=== PATIENT | male | born 1930 | race Caucasian/White ===

== ENCOUNTER 2017-08-10 11:45 | Inpatient (IN) | payer MEDICARE, OTHER ==
[2017-08-10] MEDS: SOD CHLORIDE 0.9% 1,000 ML IV (12:44)
[2017-08-10 12:57] LABS: ADD MAN DIFF? NO
[2017-08-10 13:06] LABS: WHITE BLOOD COUNT 10.9 10^3/ul (4.8-10.8)
[2017-08-10 13:06] LABS: BASOPHIL # 0.1 10^3/ul (0.0-0.1); BASOPHILS % 0.6 % (0.0-2.0); EOSINOPHILS # 0.3 10^3/ul (0.0-0.5); EOSINOPHILS % 2.6 % (0.0-7.0); HEMATOCRIT 35.5 % (42.0-52.0); HEMOGLOBIN 11.3 g/dl (14.0-18.0); LYMPHOCYTES # 0.9 10^3/ul (0.8-2.9); LYMPHOCYTES % 8.5 % (15.0-51.0); MEAN CORPUSCULAR HGB CONC 31.8 g/dl (32.0-37.0); MEAN CORPUSCULAR VOLUME 88.1 fl (82.0-101.0); MEAN PLATELET VOLUME 9.8 fl (7.4-10.4); MONOCYTE # 0.9 10^3/ul (0.3-0.9); MONOCYTES % 8.2 % (0.0-11.0); NEUTROPHIL # 8.5 10^3/ul (1.6-7.5); NEUTROPHILS % 77.8 % (39.0-77.0); PLATELET COUNT 183 10^3/UL (140-415); RED BLOOD COUNT 4.03 10^6/ul (4.70-6.10); RED CELL DISTRIBUTION WIDTH 15.4 % (11.5-14.5)
[2017-08-10 13:33] LABS: ALANINE AMINOTRANSFERASE 29 IU/L (13-69); ALBUMIN 3.9 g/dl (3.3-4.9); ALBUMIN/GLOBULIN RATIO 1.14; ALKALINE PHOSPHATASE 88 IU/L (42-121); ANION GAP 29 (8-16); ASPARTATE AMINO TRANSFERASE 13 IU/L (15-46); BLOOD UREA NITROGEN 75 mg/dl (7-20); CALCIUM 8.7 mg/dl (8.4-10.2); CARBON DIOXIDE 18 mmol/L (21-31); CHLORIDE 97 mmol/L (97-110); CREATININE 12.34 mg/dl (0.61-1.24); GLUCOSE 171 mg/dl (70-220); POTASSIUM 4.6 mmol/L (3.5-5.1); SODIUM 139 mmol/L (135-144); TOTAL PROTEIN 7.3 g/dl (6.1-8.1)
[2017-08-10 13:43] LABS: TROPONIN-I 0.064 ng/ml (0.00-0.12)
[2017-08-10 13:57] LABS: B-TYPE NATRIURETIC PEPTIDE 52100 PG/ML (0-450)
[2017-08-10] MEDS ORDERED: ACETAMINOPHEN 325 MG TAB PO (15:30)
[2017-08-10] MEDS ORDERED: ONDANSETRON 4 MG INJ IV (15:30)
[2017-08-10] MEDS ORDERED: GLUCAGON 1 MG INJ IM (17:30)
[2017-08-10] MEDS ORDERED: GLUCOSE GEL 15 GRAM TUBE PO ×2 (17:30)
[2017-08-10] MEDS ORDERED: DEXTROSE 50% 50 ML SYRINGE IV (17:30)
[2017-08-10] MEDS ORDERED: GLUCOSE GEL 15 GRAM TUBE BUCCAL (17:30)
[2017-08-10 20:05] LABS: CREATINE KINASE 47 IU/L (23-200)
[2017-08-10 20:18] LABS: CK INDEX 2.9; TROPONIN-I 0.071 ng/ml (0.00-0.12)
[2017-08-10 20:21] LABS: CK-MB 1.35 ng/ml (0.0-2.4)
[2017-08-10] MEDS: INSULIN ASPART [NOVOLOG] 3 ML PEN SC ×2 (21:00→21:30)
[2017-08-10] MEDS: GABAPENTIN 300 MG CAP PO (22:53)
[2017-08-10] MEDS: PRAMIPEXOLE 0.25 MG TAB PO (22:53)
[2017-08-10] MEDS: BENAZEPRIL 20 MG TAB PO (22:53)
[2017-08-10] MEDS: AMLODIPINE 5 MG TAB PO (22:54)
[2017-08-10] MEDS: METOPROLOL 25 MG TAB PO (22:56)
[2017-08-10] MEDS: INSULIN GLARGINE [LANtus] 3 ML PEN SC (23:04)
[2017-08-11] MEDS: ACCU-CHEK XX (02:00)
[2017-08-11 02:23] LABS: CREATINE KINASE 45 IU/L (23-200)
[2017-08-11 02:37] LABS: CK INDEX 3.2; TROPONIN-I 0.077 ng/ml (0.00-0.12)
[2017-08-11 02:50] LABS: CK-MB 1.44 ng/ml (0.0-2.4)
[2017-08-11 06:35] LABS: ADD MAN DIFF? NO
[2017-08-11 06:43] LABS: BASOPHIL # 0.1 10^3/ul (0.0-0.1); BASOPHILS % 0.7 % (0.0-2.0); EOSINOPHILS # 0.5 10^3/ul (0.0-0.5); EOSINOPHILS % 4.9 % (0.0-7.0); HEMATOCRIT 33.5 % (42.0-52.0); HEMOGLOBIN 10.8 g/dl (14.0-18.0); LYMPHOCYTES # 1.2 10^3/ul (0.8-2.9); LYMPHOCYTES % 12.8 % (15.0-51.0); MEAN CORPUSCULAR HEMOGLOBIN 28.1 pg (29.0-33.0); MEAN CORPUSCULAR HGB CONC 32.2 g/dl (32.0-37.0); MONOCYTES % 10.8 % (0.0-11.0); NEUTROPHIL # 6.4 10^3/ul (1.6-7.5); NEUTROPHILS % 68.2 % (39.0-77.0); PLATELET COUNT 185 10^3/UL (140-415); RED BLOOD COUNT 3.85 10^6/ul (4.70-6.10); RED CELL DISTRIBUTION WIDTH 15.5 % (11.5-14.5)
[2017-08-11 06:43] LABS: WHITE BLOOD COUNT 9.4 10^3/ul (4.8-10.8)
[2017-08-11 06:49] LABS: HEMOGLOBIN A1C 6.7 % (0-5.9)
[2017-08-11 07:08] LABS: ALBUMIN 3.6 g/dl (3.3-4.9); ANION GAP 23 (8-16); BLOOD UREA NITROGEN 81 mg/dl (7-20); CALCIUM 8.2 mg/dl (8.4-10.2); CARBON DIOXIDE 22 mmol/L (21-31); CHLORIDE 101 mmol/L (97-110); MAGNESIUM 2.2 mg/dl (1.7-2.5); PHOSPHORUS 8.4 mg/dl (2.5-4.9); POTASSIUM 4.6 mmol/L (3.5-5.1); SODIUM 141 mmol/L (135-144)
[2017-08-11 07:12] LABS: GLUCOSE 47 mg/dl (70-220)
[2017-08-11] MEDS: DEXTROSE 50% 50 ML SYRINGE IV (07:32)
[2017-08-11] MEDS: INSULIN ASPART [NOVOLOG] 3 ML PEN SC ×4 (07:34→21:00)
[2017-08-11 07:59] LABS: THYROID STIMULATING HORMONE 0.771 MIU/L (0.465-4.680)
[2017-08-11] MEDS: BENAZEPRIL 20 MG TAB PO ×2 (10:00→22:12)
[2017-08-11] MEDS: PRAMIPEXOLE 0.25 MG TAB PO ×2 (10:00→22:12)
[2017-08-11] MEDS: AMLODIPINE 5 MG TAB PO ×2 (10:00→22:10)
[2017-08-11] MEDS: ALLOPURINOL 300 MG TAB PO (10:00)
[2017-08-11] MEDS: METOPROLOL 25 MG TAB PO ×2 (10:00→22:11)
[2017-08-11 10:29] LABS: CHOL/HDL RATIO 4.2 RATIO; HDL CHOLESTEROL 36 mg/dl (31-75); LDL CHOLESTEROL,CALCULATED 88 mg/dl; TRIGLYCERIDES 142 mg/dl (0-149)
[2017-08-11 10:29] LABS: CHOLESTEROL 152 mg/dl (100-200)
[2017-08-11 11:00] LABS: THYROID STIMULATING HORMONE 0.758 MIU/L (0.465-4.680)
[2017-08-11] MEDS: IODIXANOL LOCM 100 ML BTL (12:57)
[2017-08-11] MEDS: SOD CHLORIDE 0.9% 100 ML (12:57)
[2017-08-11 19:28] LABS: HEPATITIS B SURFACE ANTIBODY NEGATIVE (NEGATIVE)
[2017-08-11 19:53] LABS: HEPATITIS B SURFACE ANTIGEN NEGATIVE (NEGATIVE)
[2017-08-11] MEDS: INSULIN GLARGINE [LANtus] 3 ML PEN SC (21:00)
[2017-08-11] MEDS: GABAPENTIN 300 MG CAP PO (22:09)
[2017-08-11] MEDS: ATORVASTATIN 40 MG TAB PO (22:12)
[2017-08-12] MEDS: EPOETIN 3000 UNITS/1 ML INJ (ESRD) SC (00:38)
[2017-08-12] MEDS: ACCU-CHEK XX (02:00)
[2017-08-12] MEDS: INSULIN ASPART [NOVOLOG] 3 ML PEN SC ×4 (07:56→21:00)
[2017-08-12] MEDS: ALLOPURINOL 300 MG TAB PO (08:21)
[2017-08-12] MEDS: ASPIRIN 81 MG TAB PO (08:21)
[2017-08-12] MEDS: PRAMIPEXOLE 0.25 MG TAB PO ×2 (08:21→21:16)
[2017-08-12] MEDS: METOPROLOL 25 MG TAB PO ×2 (08:21→21:00)
[2017-08-12] MEDS: BENAZEPRIL 20 MG TAB PO ×2 (08:21→21:17)
[2017-08-12] MEDS: AMLODIPINE 5 MG TAB PO ×2 (08:22→21:17)
[2017-08-12] MEDS: SEVELAMER 400 MG TAB PO ×3 (09:00→18:14)
[2017-08-12 09:11] LABS: ADD MAN DIFF? NO
[2017-08-12 09:41] LABS: BASOPHIL # 0.1 10^3/ul (0.0-0.1); BASOPHILS % 0.7 % (0.0-2.0); EOSINOPHILS # 0.4 10^3/ul (0.0-0.5); HEMATOCRIT 36.9 % (42.0-52.0); LYMPHOCYTES % 12.4 % (15.0-51.0); MEAN CORPUSCULAR HEMOGLOBIN 28.1 pg (29.0-33.0); MEAN CORPUSCULAR HGB CONC 32.5 g/dl (32.0-37.0); MEAN CORPUSCULAR VOLUME 86.4 fl (82.0-101.0); MONOCYTES % 12.1 % (0.0-11.0); NEUTROPHIL # 5.7 10^3/ul (1.6-7.5); NEUTROPHILS % 68.2 % (39.0-77.0); PLATELET COUNT 160 10^3/UL (140-415); RED BLOOD COUNT 4.27 10^6/ul (4.70-6.10); RED CELL DISTRIBUTION WIDTH 15.9 % (11.5-14.5)
[2017-08-12 09:41] LABS: WHITE BLOOD COUNT 8.4 10^3/ul (4.8-10.8)
[2017-08-12 09:44] LABS: ANION GAP 20 (8-16); BLOOD UREA NITROGEN 42 mg/dl (7-20); CALCIUM 8.7 mg/dl (8.4-10.2); CARBON DIOXIDE 27 mmol/L (21-31); CHLORIDE 96 mmol/L (97-110); CREATININE 8.64 mg/dl (0.61-1.24); GLUCOSE 129 mg/dl (70-220); MAGNESIUM 1.9 mg/dl (1.7-2.5); PHOSPHORUS 5.8 mg/dl (2.5-4.9); POTASSIUM 4.6 mmol/L (3.5-5.1); SODIUM 138 mmol/L (135-144)
[2017-08-12 09:51] LABS: ALBUMIN 3.5 g/dl (3.3-4.9); ANION GAP 20 (8-16); BLOOD UREA NITROGEN 42 mg/dl (7-20); CALCIUM 8.7 mg/dl (8.4-10.2); CARBON DIOXIDE 26 mmol/L (21-31); CHLORIDE 96 mmol/L (97-110); CREATININE 8.46 mg/dl (0.61-1.24); GLUCOSE 126 mg/dl (70-220); PHOSPHORUS 5.8 mg/dl (2.5-4.9); POTASSIUM 4.8 mmol/L (3.5-5.1); SODIUM 137 mmol/L (135-144)
[2017-08-12] MEDS: COLLAGENASE 30 GM TUBE TOP (16:30)
[2017-08-12] MEDS: LINAGLIPTIN 5 MG TABLET PO (18:14)
[2017-08-12] MEDS: GABAPENTIN 300 MG CAP PO (21:16)
[2017-08-12] MEDS: ATORVASTATIN 40 MG TAB PO (21:17)
[2017-08-13] MEDS: ACCU-CHEK XX (02:00)
[2017-08-13] MEDS: INSULIN ASPART [NOVOLOG] 3 ML PEN SC ×4 (08:38→21:00)
[2017-08-13] MEDS: SEVELAMER 400 MG TAB PO ×3 (08:40→17:05)
[2017-08-13] MEDS: AMLODIPINE 5 MG TAB PO ×2 (08:40→23:54)
[2017-08-13] MEDS: ALLOPURINOL 300 MG TAB PO (08:40)
[2017-08-13] MEDS: ASPIRIN 81 MG TAB PO (08:40)
[2017-08-13] MEDS: BENAZEPRIL 20 MG TAB PO ×2 (08:40→23:53)
[2017-08-13] MEDS: PRAMIPEXOLE 0.25 MG TAB PO ×2 (08:41→23:55)
[2017-08-13] MEDS: LINAGLIPTIN 5 MG TABLET PO (08:41)
[2017-08-13] MEDS: METOPROLOL 25 MG TAB PO ×2 (08:42→20:33)
[2017-08-13] MEDS: COLLAGENASE 30 GM TUBE TOP (08:42)
[2017-08-13 08:43] LABS: ADD MAN DIFF? NO
[2017-08-13 08:51] LABS: BASOPHIL # 0.1 10^3/ul (0.0-0.1); BASOPHILS % 0.9 % (0.0-2.0); EOSINOPHILS # 0.5 10^3/ul (0.0-0.5); EOSINOPHILS % 5.5 % (0.0-7.0); HEMATOCRIT 36.7 % (42.0-52.0); HEMOGLOBIN 11.7 g/dl (14.0-18.0); LYMPHOCYTES # 1.5 10^3/ul (0.8-2.9); MEAN CORPUSCULAR HGB CONC 31.9 g/dl (32.0-37.0); MEAN CORPUSCULAR VOLUME 87.8 fl (82.0-101.0); MEAN PLATELET VOLUME 10.1 fl (7.4-10.4); MONOCYTE # 1.3 10^3/ul (0.3-0.9); MONOCYTES % 14.2 % (0.0-11.0); NEUTROPHIL # 5.3 10^3/ul (1.6-7.5); NEUTROPHILS % 59.7 % (39.0-77.0); PLATELET COUNT 141 10^3/UL (140-415); RED BLOOD COUNT 4.18 10^6/ul (4.70-6.10); RED CELL DISTRIBUTION WIDTH 15.8 % (11.5-14.5)
[2017-08-13 08:51] LABS: WHITE BLOOD COUNT 8.9 10^3/ul (4.8-10.8)
[2017-08-13 09:23] LABS: ALBUMIN 3.5 g/dl (3.3-4.9); ANION GAP 21 (8-16); BLOOD UREA NITROGEN 62 mg/dl (7-20); CALCIUM 8.1 mg/dl (8.4-10.2); CARBON DIOXIDE 24 mmol/L (21-31); CHLORIDE 96 mmol/L (97-110); CREATININE 10.76 mg/dl (0.61-1.24); GLUCOSE 139 mg/dl (70-220); PHOSPHORUS 6.6 mg/dl (2.5-4.9); POTASSIUM 5.2 mmol/L (3.5-5.1); SODIUM 136 mmol/L (135-144)
[2017-08-13] MEDS: EPOETIN 3000 UNITS/1 ML INJ (ESRD) SC (11:11)
[2017-08-13] MEDS: GABAPENTIN 300 MG CAP PO (23:54)
[2017-08-13] MEDS: ATORVASTATIN 40 MG TAB PO (23:55)
[2017-08-14] MEDS: ACCU-CHEK XX (02:00)
[2017-08-14] MEDS: METOPROLOL 25 MG TAB PO ×2 (08:22→21:00)
[2017-08-14] MEDS: INSULIN ASPART [NOVOLOG] 3 ML PEN SC ×4 (08:22→21:00)
[2017-08-14] MEDS: BENAZEPRIL 20 MG TAB PO ×2 (08:32→21:00)
[2017-08-14] MEDS: COLLAGENASE 30 GM TUBE TOP (08:32)
[2017-08-14] MEDS: SEVELAMER 400 MG TAB PO ×3 (08:32→17:04)
[2017-08-14] MEDS: LINAGLIPTIN 5 MG TABLET PO (08:32)
[2017-08-14] MEDS: ALLOPURINOL 300 MG TAB PO (08:32)
[2017-08-14] MEDS: PRAMIPEXOLE 0.25 MG TAB PO ×2 (08:32→21:00)
[2017-08-14] MEDS: ASPIRIN 81 MG TAB PO (08:32)
[2017-08-14] MEDS: AMLODIPINE 5 MG TAB PO ×2 (08:32→21:00)
[2017-08-14] MEDS ORDERED: ALBUTEROL/IPRATROPIUM (NEB) 3 ML AMP HHN (10:00)
[2017-08-14] MEDS: ALBUTEROL/IPRATROPIUM (NEB) 3 ML AMP HHN ×3 (13:16→20:27)
[2017-08-14 14:11] LABS: AADO2 Arterial 173.9 mmHg (7.0-24.0); Allen Test ACCEPTAB; Arterial Base Excess 4.1 mmol/L (-3.0-3); Arterial Blood Gas Oxygen Sat 87.5 mmHG (95.0-100.0); Arterial COHb 0.3 % (0.0-3.0); Arterial HCO3 28.9 mmol/L (22.0-26.0); Arterial MetHb 0.3 % (0.0-1.5); Arterial Total Hemglobin 11.5 g/dl (12.0-18.0); Arterial pCO2 44.6 mmhg (35-45); MODE NASAL CANNULA; Site Right Radial
[2017-08-14 15:01] LABS: ADD MAN DIFF? NO
[2017-08-14 15:13] LABS: WHITE BLOOD COUNT 12.7 10^3/ul (4.8-10.8)
[2017-08-14 15:13] LABS: BASOPHIL # 0.1 10^3/ul (0.0-0.1); BASOPHILS % 0.4 % (0.0-2.0); EOSINOPHILS # 0.2 10^3/ul (0.0-0.5); EOSINOPHILS % 1.7 % (0.0-7.0); HEMATOCRIT 35.5 % (42.0-52.0); HEMOGLOBIN 11.3 g/dl (14.0-18.0); LYMPHOCYTES # 1.4 10^3/ul (0.8-2.9); LYMPHOCYTES % 10.7 % (15.0-51.0); MEAN CORPUSCULAR HGB CONC 31.8 g/dl (32.0-37.0); MEAN CORPUSCULAR VOLUME 87.9 fl (82.0-101.0); MEAN PLATELET VOLUME 10.1 fl (7.4-10.4); MONOCYTE # 1.4 10^3/ul (0.3-0.9); MONOCYTES % 11.2 % (0.0-11.0); NEUTROPHIL # 9.5 10^3/ul (1.6-7.5); NEUTROPHILS % 74.7 % (39.0-77.0); PLATELET COUNT 150 10^3/UL (140-415); RED BLOOD COUNT 4.04 10^6/ul (4.70-6.10); RED CELL DISTRIBUTION WIDTH 15.9 % (11.5-14.5)
[2017-08-14] MEDS ORDERED: VANCOMYCIN IV PER PHARMACY XX (15:30)
[2017-08-14 15:45] LABS: ANION GAP 17 (8-16); BLOOD UREA NITROGEN 34 mg/dl (7-20); CALCIUM 8.3 mg/dl (8.4-10.2); CARBON DIOXIDE 28 mmol/L (21-31); CHLORIDE 96 mmol/L (97-110); CREATININE 7.65 mg/dl (0.61-1.24); GLUCOSE 181 mg/dl (70-220); POTASSIUM 4.8 mmol/L (3.5-5.1); SODIUM 136 mmol/L (135-144)
[2017-08-14] MEDS: DEXTROSE 5%-0.45% NACL 1,000 ML IV (16:59)
[2017-08-14] MEDS: CEFEPIME 1GM/50 ML (PMX) 50 ML IVPB (17:01)
[2017-08-14] MEDS: VANCOMYCIN 1.25 GM in SOD CHLORIDE 0.45% 250 ML IVPB (18:11)
[2017-08-14] MEDS: ATORVASTATIN 40 MG TAB PO (21:00)
[2017-08-15] MEDS: INSULIN GLARGINE [LANtus] 3 ML PEN SC
[2017-08-15] MEDS: ALBUTEROL/IPRATROPIUM (NEB) 3 ML AMP HHN ×6 (01:04→21:00)
[2017-08-15] MEDS: ACCU-CHEK XX (03:54)
[2017-08-15] MEDS: DEXTROSE 5%-0.45% NACL 1,000 ML IV ×2 (05:02→12:34)
[2017-08-15 06:43] LABS: HEMOGLOBIN 11.4 g/dl (14.0-18.0)
[2017-08-15 06:43] LABS: HEMATOCRIT 35.4 % (42.0-52.0)
[2017-08-15] MEDS: SEVELAMER 400 MG TAB PO ×3 (08:00→17:35)
[2017-08-15 08:29] LABS: AADO2 Arterial 182.2 mmHg (7.0-24.0); Allen Test ACCEPTAB; Arterial Base Excess 2.1 mmol/L (-3.0-3); Arterial COHb 0 % (0.0-3.0); Arterial Fraction of Oxyhgb 97.7 % (93.0-99.0); Arterial HCO3 26.7 mmol/L (22.0-26.0); Arterial MetHb 0.3 % (0.0-1.5); Arterial Total Hemglobin 11.6 g/dl (12.0-18.0); Arterial pCO2 41.8 mmhg (35-45); Blood Gas IEPAP 15/5; MODE MASK - BIPAP; Site Right Radial
[2017-08-15] MEDS: INSULIN ASPART [NOVOLOG] 3 ML PEN SC ×4 (08:44→21:00)
[2017-08-15] MEDS: PRAMIPEXOLE 0.25 MG TAB PO ×2 (09:00→20:53)
[2017-08-15] MEDS: ALLOPURINOL 300 MG TAB PO (09:00)
[2017-08-15] MEDS: COLLAGENASE 30 GM TUBE TOP (09:00)
[2017-08-15] MEDS: BENAZEPRIL 20 MG TAB PO ×2 (09:00→20:53)
[2017-08-15] MEDS: AMLODIPINE 5 MG TAB PO ×2 (09:00→20:53)
[2017-08-15] MEDS: LINAGLIPTIN 5 MG TABLET PO (09:00)
[2017-08-15] MEDS: ASPIRIN 81 MG TAB PO (09:00)
[2017-08-15] MEDS: METOPROLOL 25 MG TAB PO ×2 (09:00→20:53)
[2017-08-15] MEDS: metroNIDAZOLE 500 MG/NS (PMX) 100 ML IVPB (14:37)
[2017-08-15] MEDS: EPOETIN 3000 UNITS/1 ML INJ (ESRD) SC (17:00)
[2017-08-15] MEDS: CEFEPIME 1GM/50 ML (PMX) 50 ML IVPB (17:01)
[2017-08-15] MEDS: ATORVASTATIN 40 MG TAB PO (20:53)
[2017-08-16] MEDS: metroNIDAZOLE 500 MG/NS (PMX) 100 ML IVPB ×4 (00:34→22:17)
[2017-08-16] MEDS: INSULIN GLARGINE [LANtus] 3 ML PEN SC ×2 (00:46→22:16)
[2017-08-16] MEDS: ALBUTEROL/IPRATROPIUM (NEB) 3 ML AMP HHN ×7 (01:13→22:05)
[2017-08-16] MEDS: ACCU-CHEK XX (02:00)
[2017-08-16 06:39] LABS: ADD MAN DIFF? NO
[2017-08-16 06:52] LABS: BASOPHIL # 0.1 10^3/ul (0.0-0.1); BASOPHILS % 0.5 % (0.0-2.0); EOSINOPHILS # 0.3 10^3/ul (0.0-0.5); EOSINOPHILS % 3.6 % (0.0-7.0); HEMATOCRIT 33.9 % (42.0-52.0); HEMOGLOBIN 10.9 g/dl (14.0-18.0); LYMPHOCYTES # 0.7 10^3/ul (0.8-2.9); LYMPHOCYTES % 7.7 % (15.0-51.0); MEAN CORPUSCULAR HEMOGLOBIN 28.2 pg (29.0-33.0); MEAN CORPUSCULAR HGB CONC 32.2 g/dl (32.0-37.0); MEAN CORPUSCULAR VOLUME 87.8 fl (82.0-101.0); MONOCYTE # 0.9 10^3/ul (0.3-0.9); MONOCYTES % 9.8 % (0.0-11.0); NEUTROPHILS % 77.4 % (39.0-77.0); PLATELET COUNT 131 10^3/UL (140-415); RED BLOOD COUNT 3.86 10^6/ul (4.70-6.10); RED CELL DISTRIBUTION WIDTH 15.9 % (11.5-14.5)
[2017-08-16 06:52] LABS: WHITE BLOOD COUNT 9.1 10^3/ul (4.8-10.8)
[2017-08-16 07:23] LABS: ANION GAP 17 (8-16); BLOOD UREA NITROGEN 17 mg/dl (7-20); CALCIUM 8.8 mg/dl (8.4-10.2); CARBON DIOXIDE 28 mmol/L (21-31); CHLORIDE 102 mmol/L (97-110); CREATININE 4.88 mg/dl (0.61-1.24); GLUCOSE 173 mg/dl (70-220); POTASSIUM 4.2 mmol/L (3.5-5.1); SODIUM 143 mmol/L (135-144)
[2017-08-16 07:24] LABS: VANCOMYCIN,RANDOM 10.5 ug/ml
[2017-08-16] MEDS: INSULIN ASPART [NOVOLOG] 3 ML PEN SC ×4 (07:52→20:25)
[2017-08-16] MEDS: SEVELAMER 400 MG TAB PO ×3 (08:00→18:05)
[2017-08-16] MEDS: ALLOPURINOL 300 MG TAB PO (09:00)
[2017-08-16] MEDS: METOPROLOL 25 MG TAB PO ×2 (09:00→20:31)
[2017-08-16] MEDS: LINAGLIPTIN 5 MG TABLET PO (09:00)
[2017-08-16] MEDS: AMLODIPINE 5 MG TAB PO ×2 (09:00→20:33)
[2017-08-16] MEDS: ASPIRIN 81 MG TAB PO (09:00)
[2017-08-16] MEDS: BENAZEPRIL 20 MG TAB PO ×2 (09:00→20:32)
[2017-08-16] MEDS: PRAMIPEXOLE 0.25 MG TAB PO ×2 (09:00→20:33)
[2017-08-16] MEDS: DEXTROSE 5%-0.45% NACL 1,000 ML IV ×2 (09:18→22:17)
[2017-08-16] MEDS: COLLAGENASE 30 GM TUBE TOP (09:23)
[2017-08-16 10:18] LABS: AADO2 Arterial 53.7 mmHg (7.0-24.0); Allen Test ACCEPTAB; Arterial Base Excess 2.9 mmol/L (-3.0-3); Arterial Blood Gas Oxygen Sat 97.6 mmHG (95.0-100.0); Arterial COHb 0.3 % (0.0-3.0); Arterial HCO3 27.4 mmol/L (22.0-26.0); Arterial MetHb 0.3 % (0.0-1.5); Arterial Total Hemglobin 10.8 g/dl (12.0-18.0); Arterial pCO2 41.7 mmhg (35-45); MODE NASAL CANNULA; Site Right Radial
[2017-08-16] MEDS: VANCOMYCIN 1 GM 250 ML IVPB (13:12)
[2017-08-16] MEDS: CEFEPIME 1GM/50 ML (PMX) 50 ML IVPB (17:15)
[2017-08-16] MEDS: ATORVASTATIN 40 MG TAB PO (20:31)
[2017-08-17] MEDS: ALBUTEROL/IPRATROPIUM (NEB) 3 ML AMP HHN ×6 (00:23→21:16)
[2017-08-17] MEDS: ACCU-CHEK XX (02:00)
[2017-08-17] MEDS: metroNIDAZOLE 500 MG/NS (PMX) 100 ML IVPB ×3 (05:48→21:28)
[2017-08-17] MEDS: INSULIN ASPART [NOVOLOG] 3 ML PEN SC ×4 (08:00→21:00)
[2017-08-17] MEDS: COLLAGENASE 30 GM TUBE TOP (09:00)
[2017-08-17] MEDS: AMLODIPINE 5 MG TAB PO ×2 (09:00→21:00)
[2017-08-17] MEDS: METOPROLOL 25 MG TAB PO ×2 (09:00→21:00)
[2017-08-17] MEDS: BENAZEPRIL 20 MG TAB PO ×2 (09:00→21:00)
[2017-08-17] MEDS: LINAGLIPTIN 5 MG TABLET PO (10:10)
[2017-08-17] MEDS: ALLOPURINOL 300 MG TAB PO (10:10)
[2017-08-17] MEDS: ASPIRIN 81 MG TAB PO (10:11)
[2017-08-17] MEDS: SEVELAMER 400 MG TAB PO ×3 (10:11→18:09)
[2017-08-17] MEDS: PRAMIPEXOLE 0.25 MG TAB PO ×2 (10:11→21:00)
[2017-08-17] MEDS: DEXTROSE 5%-0.45% NACL 1,000 ML IV (10:40)
[2017-08-17 12:36] LABS: ANION GAP 16 (8-16); BLOOD UREA NITROGEN 10 mg/dl (7-20); CALCIUM 8.9 mg/dl (8.4-10.2); CARBON DIOXIDE 28 mmol/L (21-31); CHLORIDE 101 mmol/L (97-110); CREATININE 2.91 mg/dl (0.61-1.24); GLUCOSE 122 mg/dl (70-220); POTASSIUM 3.6 mmol/L (3.5-5.1); SODIUM 141 mmol/L (135-144)
[2017-08-17] MEDS: CEFEPIME 1GM/50 ML (PMX) 50 ML IVPB (18:09)
[2017-08-17] MEDS: BALSAM PERU/CASTOR OIL 60 GM TUBE TOP (18:09)
[2017-08-17] MEDS: ATORVASTATIN 40 MG TAB PO (21:00)
[2017-08-17] MEDS: INSULIN GLARGINE [LANtus] 3 ML PEN SC (21:39)
[2017-08-17] MEDS: hydrALAzine 20 MG INJ IV (21:43)
[2017-08-18] MEDS: ALBUTEROL/IPRATROPIUM (NEB) 3 ML AMP HHN ×6 (00:02→21:17)
[2017-08-18] MEDS: ACCU-CHEK XX (02:00)
[2017-08-18] MEDS: metroNIDAZOLE 500 MG/NS (PMX) 100 ML IVPB ×4 (05:18→22:59)
[2017-08-18] MEDS: DEXTROSE 5%-0.45% NACL 1,000 ML IV ×2 (05:20→12:14)
[2017-08-18] MEDS: SEVELAMER 400 MG TAB PO ×3 (08:00→16:49)
[2017-08-18] MEDS: BENAZEPRIL 20 MG TAB PO ×2 (08:37→21:00)
[2017-08-18] MEDS: ASPIRIN 81 MG TAB PO (08:37)
[2017-08-18] MEDS: AMLODIPINE 5 MG TAB PO ×2 (08:38→21:00)
[2017-08-18] MEDS: COLLAGENASE 30 GM TUBE TOP (08:38)
[2017-08-18] MEDS: LINAGLIPTIN 5 MG TABLET PO (08:38)
[2017-08-18] MEDS: PRAMIPEXOLE 0.25 MG TAB PO ×2 (08:38→21:00)
[2017-08-18] MEDS: ALLOPURINOL 300 MG TAB PO (08:38)
[2017-08-18] MEDS: BALSAM PERU/CASTOR OIL 60 GM TUBE TOP (08:38)
[2017-08-18] MEDS: METOPROLOL 25 MG TAB PO ×2 (08:40→21:00)
[2017-08-18] MEDS: INSULIN ASPART [NOVOLOG] 3 ML PEN SC ×4 (08:41→22:58)
[2017-08-18 09:19] LABS: ANION GAP 18 (8-16); BLOOD UREA NITROGEN 18 mg/dl (7-20); CALCIUM 8.9 mg/dl (8.4-10.2); CARBON DIOXIDE 25 mmol/L (21-31); CHLORIDE 101 mmol/L (97-110); CREATININE 5.05 mg/dl (0.61-1.24); GLUCOSE 151 mg/dl (70-220); POTASSIUM 3.9 mmol/L (3.5-5.1); SODIUM 140 mmol/L (135-144)
[2017-08-18] MEDS: AMIODARONE 150MG/D5W BOLUS 100 ML IV (15:04)
[2017-08-18] MEDS: CEFEPIME 1GM/50 ML (PMX) 50 ML IVPB (16:48)
[2017-08-18] MEDS: EPOETIN 3000 UNITS/1 ML INJ (ESRD) SC (16:48)
[2017-08-18] MEDS: AMIODARONE 900 MG in DEXTROSE 5% 482 ML IV (16:49)
[2017-08-18] MEDS: ATORVASTATIN 40 MG TAB PO (21:00)
[2017-08-18] MEDS: INSULIN GLARGINE [LANtus] 3 ML PEN SC (22:59)
[2017-08-19] MEDS: INSULIN ASPART [NOVOLOG] 3 ML PEN SC ×6 (01:00→20:43)
[2017-08-19] MEDS: ALBUTEROL/IPRATROPIUM (NEB) 3 ML AMP HHN ×6 (01:29→20:17)
[2017-08-19] MEDS: ACCU-CHEK XX (02:00)
[2017-08-19] MEDS: DEXTROSE 5%-0.45% NACL 1,000 ML IV ×2 (02:40→16:00)
[2017-08-19] MEDS: metroNIDAZOLE 500 MG/NS (PMX) 100 ML IVPB ×3 (05:46→22:16)
[2017-08-19 06:18] LABS: VANCOMYCIN,RANDOM 12.4 ug/ml
[2017-08-19] MEDS: PRAMIPEXOLE 0.25 MG TAB PO ×2 (09:25→20:42)
[2017-08-19] MEDS: ALLOPURINOL 300 MG TAB PO (09:25)
[2017-08-19] MEDS: LINAGLIPTIN 5 MG TABLET PO (09:26)
[2017-08-19] MEDS: SEVELAMER 400 MG TAB PO ×3 (09:28→17:05)
[2017-08-19] MEDS: ASPIRIN 81 MG TAB PO (09:29)
[2017-08-19] MEDS: BENAZEPRIL 20 MG TAB PO ×2 (09:30→20:40)
[2017-08-19] MEDS: METOPROLOL 25 MG TAB PO ×2 (09:30→20:42)
[2017-08-19] MEDS: BALSAM PERU/CASTOR OIL 60 GM TUBE TOP (09:30)
[2017-08-19] MEDS: COLLAGENASE 30 GM TUBE TOP (09:30)
[2017-08-19] MEDS: AMLODIPINE 5 MG TAB PO ×2 (09:31→20:41)
[2017-08-19] MEDS: VANCOMYCIN 1 GM 250 ML IVPB (11:11)
[2017-08-19] MEDS: CEFEPIME 1GM/50 ML (PMX) 50 ML IVPB (16:51)
[2017-08-19] MEDS: AMIODARONE 200 MG TAB PO (20:41)
[2017-08-19] MEDS: ATORVASTATIN 40 MG TAB PO (20:41)
[2017-08-19] MEDS: INSULIN GLARGINE [LANtus] 3 ML PEN SC (22:20)
[2017-08-20] MEDS: ALBUTEROL/IPRATROPIUM (NEB) 3 ML AMP HHN ×5 (00:46→16:17)
[2017-08-20] MEDS: INSULIN ASPART [NOVOLOG] 3 ML PEN SC ×5 (01:00→18:01)
[2017-08-20] MEDS: ACCU-CHEK XX (02:00)
[2017-08-20] MEDS: metroNIDAZOLE 500 MG/NS (PMX) 100 ML IVPB ×2 (05:00→14:41)
[2017-08-20] MEDS: DEXTROSE 5%-0.45% NACL 1,000 ML IV (05:01)
[2017-08-20] MEDS: SEVELAMER 400 MG TAB PO ×3 (08:00→17:49)
[2017-08-20 08:38] LABS: ADD MAN DIFF? NO
[2017-08-20 08:52] LABS: WHITE BLOOD COUNT 9.5 10^3/ul (4.8-10.8)
[2017-08-20 08:52] LABS: BASOPHIL # 0.1 10^3/ul (0.0-0.1); BASOPHILS % 0.5 % (0.0-2.0); EOSINOPHILS # 0.5 10^3/ul (0.0-0.5); EOSINOPHILS % 5.6 % (0.0-7.0); HEMATOCRIT 32.1 % (42.0-52.0); HEMOGLOBIN 10.2 g/dl (14.0-18.0); LYMPHOCYTES # 1.1 10^3/ul (0.8-2.9); MEAN CORPUSCULAR HEMOGLOBIN 27.6 pg (29.0-33.0); MEAN CORPUSCULAR HGB CONC 31.8 g/dl (32.0-37.0); MEAN PLATELET VOLUME 10.3 fl (7.4-10.4); MONOCYTE # 1.1 10^3/ul (0.3-0.9); MONOCYTES % 11.3 % (0.0-11.0); NEUTROPHIL # 6.5 10^3/ul (1.6-7.5); NEUTROPHILS % 68.2 % (39.0-77.0); PLATELET COUNT 136 10^3/UL (140-415); RED BLOOD COUNT 3.69 10^6/ul (4.70-6.10); RED CELL DISTRIBUTION WIDTH 16.5 % (11.5-14.5)
[2017-08-20] MEDS: BALSAM PERU/CASTOR OIL 60 GM TUBE TOP (09:00)
[2017-08-20] MEDS: COLLAGENASE 30 GM TUBE TOP (09:00)
[2017-08-20 09:14] LABS: ALANINE AMINOTRANSFERASE 33 IU/L (13-69); ALBUMIN 2.9 g/dl (3.3-4.9); ALBUMIN/GLOBULIN RATIO 0.96; ALKALINE PHOSPHATASE 60 IU/L (42-121); ANION GAP 14 (8-16); ASPARTATE AMINO TRANSFERASE 21 IU/L (15-46); BLOOD UREA NITROGEN 22 mg/dl (7-20); CALCIUM 8.4 mg/dl (8.4-10.2); CARBON DIOXIDE 24 mmol/L (21-31); CHLORIDE 102 mmol/L (97-110); CREATININE 6.15 mg/dl (0.61-1.24); GLUCOSE 171 mg/dl (70-220); MAGNESIUM 1.8 mg/dl (1.7-2.5); POTASSIUM 3.9 mmol/L (3.5-5.1); SODIUM 136 mmol/L (135-144); TOTAL PROTEIN 5.9 g/dl (6.1-8.1)
[2017-08-20] MEDS: LINAGLIPTIN 5 MG TABLET PO (12:39)
[2017-08-20] MEDS: ASPIRIN 81 MG TAB PO (12:39)
[2017-08-20] MEDS: AMIODARONE 200 MG TAB PO (12:39)
[2017-08-20] MEDS: AMLODIPINE 5 MG TAB PO (12:39)
[2017-08-20] MEDS: BENAZEPRIL 20 MG TAB PO (12:39)
[2017-08-20] MEDS: METOPROLOL 25 MG TAB PO (12:40)
[2017-08-20] MEDS: PRAMIPEXOLE 0.25 MG TAB PO (12:40)
[2017-08-20] MEDS: ALLOPURINOL 300 MG TAB PO (12:41)
[2017-08-20] MEDS: CEFEPIME 1GM/50 ML (PMX) 50 ML IVPB (15:50)
[2017-08-20] MEDS: EPOETIN 3000 UNITS/1 ML INJ (ESRD) SC (17:50)
== END 2017-08-20 18:03 | DRG 67 ==
LOC: E/R 11:45 → MS4 08-11 15:18
DX: I65.22 Occlusion and stenosis of left carotid artery (principal); J96.01 Acute respiratory failure with hypoxia; J69.0 Pneumonitis due to inhalation of food and vomit; G92 Toxic encephalopathy; J81.0 Acute pulmonary edema; R13.10 Dysphagia, unspecified; N18.6 End stage renal disease; I12.0 Hypertensive chronic kidney disease with stage 5 chronic kidney disease or end stage renal disease; J45.909 Unspecified asthma, uncomplicated; E83.9 Disorder of mineral metabolism, unspecified; I35.0 Nonrheumatic aortic (valve) stenosis; I48.0 Paroxysmal atrial fibrillation; I25.10 Atherosclerotic heart disease of native coronary artery without angina pectoris; E11.22 Type 2 diabetes mellitus with diabetic chronic kidney disease; G62.89 Other specified polyneuropathies; M19.90 Unspecified osteoarthritis, unspecified site; M10.9 Gout, unspecified; D63.1 Anemia in chronic kidney disease; E11.40 Type 2 diabetes mellitus with diabetic neuropathy, unspecified; R53.81 Other malaise; Z66 Do not resuscitate; Z99.2 Dependence on renal dialysis; Z95.5 Presence of coronary angioplasty implant and graft; Z79.4 Long term (current) use of insulin
CPT/HCPCS: 36600; 70450; 70498; 70551; 71045; 80048; 80053; 80061; 80069; 80202; 82550; 82553; 82803; 82962; 83036; 83735; 83880; 84100; 84443; 84484; 85014; 85018; 85025; 86706; 87040; 87081; 87340; 90935; 92526; 92610; 93005; 93306; 93880; 94640; 94660; 94664; 96372; 96374; 97110; 97163; 97530; 99285-25; G0378

== ENCOUNTER 2017-09-08 15:16 | Inpatient (IN) | payer MEDICARE, OTHER ==
[~2017-09-08 15:16] MED LIST: NA BICARBONATE 8.4% 50 ML SYG; SUCCINYLCHOLINE CHLORIDE 100 MG/5 ML SYG IV
[2017-09-08] MEDS: NORepinephrine 8MG/250 ML (PMX 250 ML IV ×2 (16:07→21:25)
[2017-09-08] MEDS: SODIUM CHLORIDE 0.9% 1L BAG IV* (16:07)
[2017-09-08 16:23] LABS: WHITE BLOOD COUNT 30.7 10^3/ul (4.8-10.8)
[2017-09-08 16:23] LABS: ABNORMAL IP MESSAGE 1; HEMOGLOBIN 9.3 g/dl (14.0-18.0); MEAN CORPUSCULAR HGB CONC 28.2 g/dl (32.0-37.0); MEAN CORPUSCULAR VOLUME 102.8 fl (82.0-101.0); MEAN PLATELET VOLUME 9.7 fl (7.4-10.4); NUCLEATED RED BLOOD CELLS% 1.1 /100WBC (0.0-0.0); PLATELET COUNT 214 10^3/UL (140-415); POSITIVE DIFF @See below; RED BLOOD COUNT 3.21 10^6/ul (4.70-6.10); RED CELL DISTRIBUTION WIDTH 20.9 % (11.5-14.5)
[2017-09-08 16:30] LABS: AADO2 Arterial 414.7 mmHg (7.0-24.0); Allen Test ACCEPTAB; Arterial Base Excess -26.6 mmol/L (-3.0-3); Arterial Blood Gas Oxygen Sat 98.6 mmHG (95.0-100.0); Arterial COHb 0.3 % (0.0-3.0); Arterial Fraction of Oxyhgb 97.9 % (93.0-99.0); Arterial HCO3 6.8 mmol/L (22.0-26.0); Arterial MetHb 0.4 % (0.0-1.5); Arterial Total Hemglobin 10.5 g/dl (12.0-18.0); Arterial pCO2 42.2 mmhg (35-45); MODE VENT - AC; Site Right Radial
[2017-09-08 16:41] LABS: ADD MAN DIFF? YES
[2017-09-08 16:42] LABS: INR 1.61; PROTIME 19.5 Sec (11.9-14.9); PT RATIO 1.5
[2017-09-08 16:43] LABS: PARTIAL THROMBOPLASTIN TIME 48.9 Sec (25.0-35.0)
[2017-09-08] MEDS ORDERED: NA BICARBONATE 8.4% 50 ML SYG (16:44)
[2017-09-08 16:48] LABS: ALANINE AMINOTRANSFERASE 55 IU/L (13-69); ALBUMIN 2.9 g/dl (3.3-4.9); ALBUMIN/GLOBULIN RATIO 0.96; ALKALINE PHOSPHATASE 104 IU/L (42-121); ANION GAP 43 (8-16); BILIRUBIN,INDIRECT 0.2 mg/dl (0-1.1); BILIRUBIN,TOTAL 0.2 mg/dl (0.2-1.3); BLOOD UREA NITROGEN 38 mg/dl (7-20); CALCIUM 8.4 mg/dl (8.4-10.2); CHLORIDE 100 mmol/L (97-110); CREATININE 6.27 mg/dl (0.61-1.24); GLUCOSE 102 mg/dl (70-220); POTASSIUM 4.9 mmol/L (3.5-5.1); SODIUM 145 mmol/L (135-144); TOTAL PROTEIN 5.9 g/dl (6.1-8.1)
[2017-09-08 16:59] LABS: TROPONIN-I 0.046 ng/ml (0.00-0.12)
[2017-09-08] MEDS: VANCOMYCIN 1 GM (PMX) 250 ML IVPB (17:00)
[2017-09-08 17:01] LABS: ASPARTATE AMINO TRANSFERASE 118 IU/L (15-46); CARBON DIOXIDE 7 mmol/L (21-31)
[2017-09-08 17:02] LABS: LACTIC ACID > 24.0 mmol/L (0.5-2.0)
[2017-09-08] MEDS: NA BICARBONATE 8.4% 50 ML SYG IV ×6 (17:04→21:04)
[2017-09-08] MEDS: CEFEPIME 2GM/50 ML (PMX) 50 ML IVPB (17:04)
[2017-09-08] MEDS: SODIUM BICARBONATE (IV ADD) 100 MEQ in DEXTROSE 5%-0.45% NACL 900 ML IV (17:27)
[2017-09-08 17:54] LABS: ANISOCYTOSIS 2+ (0-0); BAND NEUTROPHILS #M 1.8 10^3/ul (0.0-0.6); BAND NEUTROPHILS % (M) 6 % (0-4); BURR CELLS 3+ (0-0); ERYTHROBLAST% (NRBC) (M) 3 % (0-0); LYMPHOCYTES % (M) 10 % (15-51); METAMYELOCYTES #M 0.6 10^3/ul (0.0-0.0); METAMYELOCYTES %M 2 % (0-0); MICROCYTOSIS 1+ (0-0); MONOCYTE #M 0.6 10^3/ul (0.3-0.9); MONOCYTES % (M) 2 % (0-11); PLATELET MORPHOLOGY COMMENT @See below; POIKILOCYTOSIS 3+ (0-0); SEG NEUT #M 25.1 10^3/ul (1.6-7.5); SEGMENTED NEUTROPHILS (M) % 80 % (39-77); SMUDGE%M 1 % (0-0)
[2017-09-08 18:02] LABS: PATH REVIEW? YES
[2017-09-08] MEDS: VASOPRESSIN 60 UNIT in SOD CHLORIDE 0.9% 57 ML IV (18:28)
[2017-09-08] MEDS: PROPOFOL 100 ML IV (19:27)
[2017-09-08 19:28] LABS: AADO2 Arterial 443.6 mmHg (7.0-24.0); Allen Test ACCEPTAB; Arterial Base Excess -18.1 mmol/L (-3.0-3); Arterial Blood Gas Oxygen Sat 98.6 mmHG (95.0-100.0); Arterial COHb 0.3 % (0.0-3.0); Arterial Fraction of Oxyhgb 97.9 % (93.0-99.0); Arterial HCO3 12.2 mmol/L (22.0-26.0); Arterial MetHb 0.4 % (0.0-1.5); Arterial Total Hemglobin 10.8 g/dl (12.0-18.0); Arterial pCO2 48.1 mmhg (35-45); MODE VENT - AC; Site Right Radial
[2017-09-08] MEDS: SOD CHLORIDE 0.9% 1,000 ML IV (19:51)
[2017-09-08] MEDS ORDERED: ACETAMINOPHEN 325 MG TAB PO (20:00)
[2017-09-08] MEDS ORDERED: ONDANSETRON 4 MG INJ IV ×2 (20:00→20:30)
[2017-09-08] MEDS: DEXTROSE 5%-0.45% NACL 1,000 ML IV ×2 (20:27→23:32)
[2017-09-08] MEDS ORDERED: LORAZEPAM 2 MG INJ IV (20:30)
[2017-09-08] MEDS ORDERED: ALBUTEROL HFA 8 GM INHALER INH (20:30)
[2017-09-08] MEDS ORDERED: IPRATROPIUM (HFA) 12.9 GM INHALER INH (20:30)
[2017-09-08] MEDS ORDERED: morphine 2 MG INJ IV (20:30)
[2017-09-08 20:50] LABS: LACTIC ACID 23.3 mmol/L (0.5-2.0)
[2017-09-08 22:52] LABS: LACTIC ACID 21.7 mmol/L (0.5-2.0)
[2017-09-08] MEDS: HEPARIN 5,000 UNIT/0.5 ML VIAL SC (23:07)
[2017-09-09] MEDS: SODIUM BICARBONATE (IV ADD) 100 MEQ in DEXTROSE 5%-0.45% NACL 900 ML IV ×3 (01:40→17:33)
[2017-09-09] MEDS: PROPOFOL 100 ML IV ×2 (01:41→17:33)
[2017-09-09] MEDS: NORepinephrine 8MG/250 ML (PMX 250 ML IV ×2 (01:44→08:57)
[2017-09-09 02:15] LABS: AADO2 Arterial 435.5 mmHg (7.0-24.0); Allen Test ACCEPTAB; Arterial Blood Gas Oxygen Sat 95.9 mmHG (95.0-100.0); Arterial COHb 0.3 % (0.0-3.0); Arterial Fraction of Oxyhgb 95.4 % (93.0-99.0); Arterial MetHb 0.2 % (0.0-1.5); Arterial Total Hemglobin 10.1 g/dl (12.0-18.0); MODE VENT - AC; Site Right Radial
[2017-09-09] MEDS: PANTOPRAZOLE 40 MG INJ IV (05:13)
[2017-09-09] MEDS: VASOPRESSIN 60 UNIT in DEXTROSE 5% 57 ML IV ×2 (05:27→09:04)
[2017-09-09 06:19] LABS: ABNORMAL IP MESSAGE 1; HEMATOCRIT 26.7 % (42.0-52.0); HEMOGLOBIN 8.2 g/dl (14.0-18.0); MEAN CORPUSCULAR HEMOGLOBIN 29.6 pg (29.0-33.0); MEAN CORPUSCULAR HGB CONC 30.7 g/dl (32.0-37.0); MEAN CORPUSCULAR VOLUME 96.4 fl (82.0-101.0); MEAN PLATELET VOLUME 10.5 fl (7.4-10.4); NUCLEATED RED BLOOD CELLS% 1.4 /100WBC (0.0-0.0); PLATELET COUNT 138 10^3/UL (140-415); POSITIVE DIFF @See below; RED BLOOD COUNT 2.77 10^6/ul (4.70-6.10); RED CELL DISTRIBUTION WIDTH 20.7 % (11.5-14.5)
[2017-09-09 06:19] LABS: WHITE BLOOD COUNT 19.8 10^3/ul (4.8-10.8)
[2017-09-09 06:20] LABS: ADD MAN DIFF? YES
[2017-09-09 06:58] LABS: ANION GAP 38 (8-16); BLOOD UREA NITROGEN 54 mg/dl (7-20); CALCIUM 7.2 mg/dl (8.4-10.2); CARBON DIOXIDE 20 mmol/L (21-31); CHLORIDE 98 mmol/L (97-110); CREATININE 5.69 mg/dl (0.61-1.24); GLUCOSE 206 mg/dl (70-220); PHOSPHORUS 5.8 mg/dl (2.5-4.9); SODIUM 152 mmol/L (135-144)
[2017-09-09 07:18] LABS: LACTIC ACID 20.4 mmol/L (0.5-2.0)
[2017-09-09 08:54] LABS: ANISOCYTOSIS 2+ (0-0); BAND NEUTROPHILS #M 8.7 10^3/ul (0.0-0.6); BAND NEUTROPHILS % (M) 44 % (0-4); EOSINOPHILS % (M) 2 % (0-7); ERYTHROBLAST% (NRBC) (M) 4 % (0-0); LYMPHOCYTES #M 0.3 10^3/ul (0.8-2.9); LYMPHOCYTES % (M) 2 % (15-51); MICROCYTOSIS 1+ (0-0); MONOCYTE #M 0.3 10^3/ul (0.3-0.9); MONOCYTES % (M) 2 % (0-11); PLATELET ESTIMATE NORMAL; POIKILOCYTOSIS 2+ (0-0); POLYCHROMASIA 3+ (0-0); SEG NEUT #M 11.6 10^3/ul (1.6-7.5); SEGMENTED NEUTROPHILS (M) % 50 % (39-77); SMUDGE%M 5 % (0-0)
[2017-09-09] MEDS: HEPARIN 5,000 UNIT/0.5 ML VIAL SC ×2 (08:57→21:04)
[2017-09-09] MEDS ORDERED: VANCOMYCIN IV PER PHARMACY XX (09:00)
[2017-09-09 09:34] LABS: AADO2 Arterial 171.6 mmHg (7.0-24.0); Allen Test ACCEPTAB; Arterial Base Excess -8.3 mmol/L (-3.0-3); Arterial COHb 0.6 % (0.0-3.0); Arterial Fraction of Oxyhgb 92.4 % (93.0-99.0); Arterial HCO3 17.2 mmol/L (22.0-26.0); Arterial MetHb 0 % (0.0-1.5); Arterial pCO2 35.2 mmhg (35-45); MODE VENT - AC; Site Right Radial
[2017-09-09] MEDS ORDERED: GLUCOSE GEL 15 GRAM TUBE PO ×2 (12:30)
[2017-09-09] MEDS ORDERED: GLUCAGON 1 MG INJ IM (12:30)
[2017-09-09] MEDS ORDERED: GLUCOSE GEL 15 GRAM TUBE BUCCAL (12:30)
[2017-09-09] MEDS ORDERED: DEXTROSE 50% 50 ML SYRINGE IV ×2 (12:30)
[2017-09-09 12:47] LABS: HEMOGLOBIN A1C 6.2 % (0-5.9)
[2017-09-09 13:30] LABS: AADO2 Arterial 158.9 mmHg (7.0-24.0); Allen Test ACCEPTAB; Arterial Base Excess -12.3 mmol/L (-3.0-3); Arterial Blood Gas Oxygen Sat 95.5 mmHG (95.0-100.0); Arterial COHb 0 % (0.0-3.0); Arterial Fraction of Oxyhgb 95.4 % (93.0-99.0); Arterial HCO3 12.9 mmol/L (22.0-26.0); Arterial MetHb 0.1 % (0.0-1.5); Arterial Total Hemglobin 9.1 g/dl (12.0-18.0); Arterial pCO2 27.3 mmhg (35-45); MODE VENT - AC; Site Right Radial
[2017-09-09] MEDS: INSULIN ASPART [NOVOLOG] 3 ML PEN SC ×3 (13:42→21:05)
[2017-09-09 14:05] LABS: ANION GAP 41 (8-16); BLOOD UREA NITROGEN 56 mg/dl (7-20); CALCIUM 7.2 mg/dl (8.4-10.2); CARBON DIOXIDE 16 mmol/L (21-31); CHLORIDE 97 mmol/L (97-110); GLUCOSE 178 mg/dl (70-220); POTASSIUM 4.2 mmol/L (3.5-5.1); SODIUM 150 mmol/L (135-144)
[2017-09-09 14:12] LABS: CREATININE 5.23 mg/dl (0.61-1.24)
[2017-09-09] MEDS: BALSAM PERU/CASTOR OIL 60 GM TUBE TOP ×2 (15:03→21:05)
[2017-09-09] MEDS: COLLAGENASE 30 GM TUBE TOP (15:03)
[2017-09-09] MEDS ORDERED: ALBUMIN HUMAN 25% 100 ML (17:17)
[2017-09-09] MEDS: ALBUMIN HUMAN 25% 100 ML IV (17:27)
[2017-09-09] MEDS: CEFEPIME 1GM/50 ML (PMX) 50 ML IVPB (17:33)
[2017-09-10] MEDS: SODIUM BICARBONATE (IV ADD) 100 MEQ in DEXTROSE 5%-0.45% NACL 900 ML IV ×2 (01:00→03:34)
[2017-09-10] MEDS: INSULIN ASPART [NOVOLOG] 3 ML PEN SC ×6 (01:14→20:23)
[2017-09-10] MEDS ORDERED: ACCU-CHEK XX (02:00)
[2017-09-10] MEDS: PROPOFOL 100 ML IV (05:11)
[2017-09-10] MEDS: PANTOPRAZOLE 40 MG INJ IV (05:11)
[2017-09-10] MEDS: VASOPRESSIN 60 UNIT in DEXTROSE 5% 57 ML IV ×2 (05:30→11:22)
[2017-09-10 06:37] LABS: ABNORMAL IP MESSAGE 1; HEMATOCRIT 22.2 % (42.0-52.0); HEMOGLOBIN 7.1 g/dl (14.0-18.0); MEAN CORPUSCULAR HEMOGLOBIN 29.8 pg (29.0-33.0); MEAN CORPUSCULAR VOLUME 93.3 fl (82.0-101.0); MEAN PLATELET VOLUME 10.3 fl (7.4-10.4); NUCLEATED RED BLOOD CELLS% 1.2 /100WBC (0.0-0.0); PLATELET COUNT 74 10^3/UL (140-415); POSITIVE DIFF @See below; RED BLOOD COUNT 2.38 10^6/ul (4.70-6.10)
[2017-09-10 06:37] LABS: WHITE BLOOD COUNT 13.4 10^3/ul (4.8-10.8)
[2017-09-10 06:43] LABS: ADD MAN DIFF? YES
[2017-09-10 07:02] LABS: ANION GAP 29 (8-16); BLOOD UREA NITROGEN 37 mg/dl (7-20); CALCIUM 7.3 mg/dl (8.4-10.2); CARBON DIOXIDE 23 mmol/L (21-31); CHLORIDE 95 mmol/L (97-110); GLUCOSE 222 mg/dl (70-220); MAGNESIUM 1.8 mg/dl (1.7-2.5); POTASSIUM 4.3 mmol/L (3.5-5.1); SODIUM 143 mmol/L (135-144)
[2017-09-10 07:06] LABS: VANCOMYCIN,RANDOM 8.6 ug/ml
[2017-09-10 07:09] LABS: CREATININE 3.37 mg/dl (0.61-1.24)
[2017-09-10 07:09] LABS: LACTIC ACID 13.8 mmol/L (0.5-2.0)
[2017-09-10 08:16] LABS: AADO2 Arterial 189.5 mmHg (7.0-24.0); Allen Test ACCEPTAB; Arterial Blood Gas Oxygen Sat 91.9 mmHG (95.0-100.0); Arterial COHb 0.3 % (0.0-3.0); Arterial Fraction of Oxyhgb 91.3 % (93.0-99.0); Arterial HCO3 23.5 mmol/L (22.0-26.0); Arterial MetHb 0.3 % (0.0-1.5); Arterial pCO2 29.2 mmhg (35-45); MODE VENT - AC; Site Right Radial
[2017-09-10] MEDS: BALSAM PERU/CASTOR OIL 60 GM TUBE TOP ×2 (08:27→20:24)
[2017-09-10] MEDS: COLLAGENASE 30 GM TUBE TOP (08:27)
[2017-09-10 10:14] LABS: ANISOCYTOSIS 1+ (0-0); BAND NEUTROPHILS % (M) 23 % (0-4); ERYTHROBLAST% (NRBC) (M) 10 % (0-0); LYMPHOCYTES % (M) 8 % (15-51); PLATELET ESTIMATE DECREASED; REACTIVE LYMPHOCYTES #M 0.1 10^3/ul (0.0-0.0); REACTIVE LYMPHOCYTES% (M) 1 % (0-0); SEG NEUT #M 9.5 10^3/ul (1.6-7.5); SEGMENTED NEUTROPHILS (M) % 68 % (39-77); SMUDGE%M 32 % (0-0)
[2017-09-10] MEDS: HEPARIN 5,000 UNIT/0.5 ML VIAL SC ×2 (10:49→21:00)
[2017-09-10] MEDS: VANCOMYCIN 1 GM 250 ML IVPB (11:11)
[2017-09-10 13:00] LABS: HEPATITIS B SURFACE ANTIGEN NEGATIVE (NEGATIVE)
[2017-09-10] MEDS: MULTIVIT/CA CARB/B CMPLX/FA TAB NGT (13:15)
[2017-09-10] MEDS: ASCORBIC ACID 250 MG TAB NGT (13:15)
[2017-09-10 13:18] LABS: HEPATITIS B SURFACE ANTIBODY NEGATIVE (NEGATIVE)
[2017-09-10 14:49] LABS: IMMEDIATE SPIN CROSSMATCH 1 2
[2017-09-10] MEDS: CEFEPIME 1GM/50 ML (PMX) 50 ML IVPB (16:43)
[2017-09-10] MEDS: INSULIN GLARGINE [LANtus] 3 ML PEN SC (20:22)
[2017-09-10] MEDS: AMIODARONE 200 MG TAB PO ×2 (20:24→20:54)
[2017-09-11] MEDS: INSULIN ASPART [NOVOLOG] 3 ML PEN SC ×6 (02:06→20:58)
[2017-09-11] MEDS: VASOPRESSIN 60 UNIT in DEXTROSE 5% 57 ML IV ×2 (05:30→17:30)
[2017-09-11 05:56] LABS: ABNORMAL IP MESSAGE 1; HEMATOCRIT 29.2 % (42.0-52.0); HEMOGLOBIN 9.6 g/dl (14.0-18.0); MEAN CORPUSCULAR HEMOGLOBIN 29.8 pg (29.0-33.0); MEAN CORPUSCULAR HGB CONC 32.9 g/dl (32.0-37.0); MEAN CORPUSCULAR VOLUME 90.7 fl (82.0-101.0); MEAN PLATELET VOLUME 10.7 fl (7.4-10.4); NUCLEATED RED BLOOD CELLS% 1.1 /100WBC (0.0-0.0); PLATELET COUNT 59 10^3/UL (140-415); POSITIVE DIFF @See below; RED BLOOD COUNT 3.22 10^6/ul (4.70-6.10)
[2017-09-11 05:59] LABS: ADD MAN DIFF? YES
[2017-09-11 06:33] LABS: ANION GAP 18 (8-16); BLOOD UREA NITROGEN 38 mg/dl (7-20); CALCIUM 7.9 mg/dl (8.4-10.2); CARBON DIOXIDE 29 mmol/L (21-31); CHLORIDE 99 mmol/L (97-110); CREATININE 3.24 mg/dl (0.61-1.24); GLUCOSE 188 mg/dl (70-220); PHOSPHORUS 1.2 mg/dl (2.5-4.9); POTASSIUM 3.3 mmol/L (3.5-5.1); SODIUM 143 mmol/L (135-144)
[2017-09-11] MEDS: PANTOPRAZOLE 40 MG INJ IV (06:42)
[2017-09-11 07:15] LABS: ANISOCYTOSIS 1+ (0-0); BAND NEUTROPHILS #M 2.3 10^3/ul (0.0-0.6); BAND NEUTROPHILS % (M) 17 % (0-4); BURR CELLS 3+ (0-0); EOSINOPHILS % (M) 2 % (0-7); ERYTHROBLAST% (NRBC) (M) 2 % (0-0); LYMPHOCYTES #M 0.5 10^3/ul (0.8-2.9); LYMPHOCYTES % (M) 4 % (15-51); MONOCYTE #M 0.5 10^3/ul (0.3-0.9); MONOCYTES % (M) 4 % (0-11); PLATELET ESTIMATE SIG DECREASED; POIKILOCYTOSIS 2+ (0-0); POLYCHROMASIA 1+ (0-0); REACTIVE LYMPHOCYTES #M 0.1 10^3/ul (0.0-0.0); REACTIVE LYMPHOCYTES% (M) 1 % (0-0); SEG NEUT #M 10.4 10^3/ul (1.6-7.5); SEGMENTED NEUTROPHILS (M) % 72 % (39-77); SMUDGE%M 5 % (0-0)
[2017-09-11 07:56] LABS: AADO2 Arterial 435.9 mmHg (7.0-24.0); Allen Test ACCEPTAB; Arterial Base Excess 6.7 mmol/L (-3.0-3); Arterial Blood Gas Oxygen Sat 96.9 mmHG (95.0-100.0); Arterial COHb 0.3 % (0.0-3.0); Arterial Fraction of Oxyhgb 96.3 % (93.0-99.0); Arterial HCO3 30.5 mmol/L (22.0-26.0); Arterial MetHb 0.3 % (0.0-1.5); Arterial Total Hemglobin 10.2 g/dl (12.0-18.0); Arterial pCO2 40.9 mmhg (35-45); MODE VENT - AC; Site Right Radial
[2017-09-11] MEDS: HEPARIN 5,000 UNIT/0.5 ML VIAL SC (09:00)
[2017-09-11] MEDS: CLOPIDOGREL 75 MG TAB PO (10:00)
[2017-09-11] MEDS: MULTIVIT/CA CARB/B CMPLX/FA TAB NGT (11:23)
[2017-09-11] MEDS: AMIODARONE 200 MG TAB PO ×2 (11:27→20:55)
[2017-09-11] MEDS: ASCORBIC ACID 250 MG TAB NGT (11:27)
[2017-09-11] MEDS: BALSAM PERU/CASTOR OIL 60 GM TUBE TOP ×2 (11:33→21:02)
[2017-09-11] MEDS: COLLAGENASE 30 GM TUBE TOP (11:33)
[2017-09-11] MEDS ORDERED: DIGOXIN 0.125 MG TAB PO (13:00)
[2017-09-11] MEDS: CEFEPIME 1GM/50 ML (PMX) 50 ML IVPB (17:58)
[2017-09-11] MEDS ORDERED: NORepinephrine 8MG/250 ML (PMX 250 ML (19:02)
[2017-09-11] MEDS: INSULIN GLARGINE [LANtus] 3 ML PEN SC (20:57)
[2017-09-12] MEDS: INSULIN ASPART [NOVOLOG] 3 ML PEN SC ×6 (01:04→21:33)
[2017-09-12 05:03] LABS: WHITE BLOOD COUNT 21.4 10^3/ul (4.8-10.8)
[2017-09-12 05:03] LABS: ABNORMAL IP MESSAGE 1; HEMATOCRIT 28.6 % (42.0-52.0); HEMOGLOBIN 9.5 g/dl (14.0-18.0); MEAN CORPUSCULAR HEMOGLOBIN 29.8 pg (29.0-33.0); MEAN CORPUSCULAR HGB CONC 33.2 g/dl (32.0-37.0); MEAN CORPUSCULAR VOLUME 89.7 fl (82.0-101.0); MEAN PLATELET VOLUME 12.5 fl (7.4-10.4); NUCLEATED RED BLOOD CELLS% 0.4 /100WBC (0.0-0.0); PLATELET COUNT 46 10^3/UL (140-415); POSITIVE DIFF @See below; RED BLOOD COUNT 3.19 10^6/ul (4.70-6.10); RED CELL DISTRIBUTION WIDTH 19.1 % (11.5-14.5)
[2017-09-12 05:06] LABS: ADD MAN DIFF? YES
[2017-09-12 05:30] LABS: ANION GAP 19 (8-16); BLOOD UREA NITROGEN 62 mg/dl (7-20); CALCIUM 7.9 mg/dl (8.4-10.2); CARBON DIOXIDE 28 mmol/L (21-31); CHLORIDE 99 mmol/L (97-110); CREATININE 4.07 mg/dl (0.61-1.24); GLUCOSE 146 mg/dl (70-220); PHOSPHORUS 1.1 mg/dl (2.5-4.9); POTASSIUM 3.2 mmol/L (3.5-5.1); SODIUM 143 mmol/L (135-144)
[2017-09-12 05:43] LABS: ANISOCYTOSIS 1+ (0-0); BAND NEUTROPHILS #M 2.7 10^3/ul (0.0-0.6); BAND NEUTROPHILS % (M) 13 % (0-4); ERYTHROBLAST% (NRBC) (M) 1 % (0-0); GIANT THROMBO% (M) 1 % (0-0); HYPOCHROMASIA 1+ (0-0); LYMPHOCYTES % (M) 5 % (15-51); MONOCYTE #M 0.2 10^3/ul (0.3-0.9); MONOCYTES % (M) 1 % (0-11); PLATELET ESTIMATE SIG DECREASED; POIKILOCYTOSIS 1+ (0-0); POLYCHROMASIA 3+ (0-0); SEG NEUT #M 17.9 10^3/ul (1.6-7.5); SEGMENTED NEUTROPHILS (M) % 81 % (39-77); SMUDGE%M 2 % (0-0)
[2017-09-12] MEDS: PANTOPRAZOLE 40 MG INJ IV (06:02)
[2017-09-12] MEDS ORDERED: POTASSIUM CHLORIDE 50 ML IVPB (06:30)
[2017-09-12] MEDS: POTASSIUM CHLORIDE 10 MEQ in SOD CHLORIDE 0.9% 50 ML IV (06:54)
[2017-09-12] MEDS: VASOPRESSIN 60 UNIT in DEXTROSE 5% 57 ML IV ×2 (08:00→17:30)
[2017-09-12] MEDS: AMIODARONE 200 MG TAB PO ×2 (08:47→21:36)
[2017-09-12] MEDS: MULTIVIT/CA CARB/B CMPLX/FA TAB NGT (08:47)
[2017-09-12] MEDS: ASCORBIC ACID 250 MG TAB NGT (08:47)
[2017-09-12] MEDS: CLOPIDOGREL 75 MG TAB PO (08:55)
[2017-09-12] MEDS: COLLAGENASE 30 GM TUBE TOP (08:56)
[2017-09-12] MEDS: BALSAM PERU/CASTOR OIL 60 GM TUBE TOP ×2 (08:57→21:34)
[2017-09-12] MEDS: POTASSIUM PHOSPHATE 20 MEQ in SOD CHLORIDE 0.9% 250 ML IVPB (10:39)
[2017-09-12] MEDS: POTASSIUM PHOSPHATE 30 MM in SOD CHLORIDE 0.9% 250 ML IVPB (14:19)
[2017-09-12] MEDS: CEFEPIME 1GM/50 ML (PMX) 50 ML IVPB (16:41)
[2017-09-12] MEDS: INSULIN GLARGINE [LANtus] 3 ML PEN SC (21:31)
[2017-09-12 23:51] LABS: CHLORIDE 102 mmol/L (97-110); PHOSPHORUS 3.1 mg/dl (2.5-4.9); POTASSIUM 4.2 mmol/L (3.5-5.1); SODIUM 140 mmol/L (135-144)
[2017-09-13 00:11] LABS: ANION GAP 14 (8-16); BLOOD UREA NITROGEN 46 mg/dl (7-20); CALCIUM 7.6 mg/dl (8.4-10.2); CARBON DIOXIDE 28 mmol/L (21-31); CREATININE 3.04 mg/dl (0.61-1.24); GLUCOSE 220 mg/dl (70-220)
[2017-09-13] MEDS: INSULIN ASPART [NOVOLOG] 3 ML PEN SC ×6 (01:25→20:49)
[2017-09-13] MEDS: VASOPRESSIN 60 UNIT in DEXTROSE 5% 57 ML IV ×2 (05:30→17:30)
[2017-09-13] MEDS: PANTOPRAZOLE 40 MG INJ IV (06:35)
[2017-09-13 07:17] LABS: WHITE BLOOD COUNT 17.1 10^3/ul (4.8-10.8)
[2017-09-13 07:17] LABS: ABNORMAL IP MESSAGE 1; HEMATOCRIT 31.3 % (42.0-52.0); HEMOGLOBIN 10.2 g/dl (14.0-18.0); MEAN CORPUSCULAR HEMOGLOBIN 29.7 pg (29.0-33.0); MEAN CORPUSCULAR HGB CONC 32.6 g/dl (32.0-37.0); MEAN CORPUSCULAR VOLUME 91.3 fl (82.0-101.0); MEAN PLATELET VOLUME 11.6 fl (7.4-10.4); NUCLEATED RED BLOOD CELLS% 0.4 /100WBC (0.0-0.0); POSITIVE DIFF @See below; RED BLOOD COUNT 3.43 10^6/ul (4.70-6.10); RED CELL DISTRIBUTION WIDTH 19.7 % (11.5-14.5)
[2017-09-13 07:20] LABS: ADD MAN DIFF? YES; PLATELET COUNT 30 10^3/UL (140-415)
[2017-09-13 07:41] LABS: ANION GAP 18 (8-16); BLOOD UREA NITROGEN 57 mg/dl (7-20); CALCIUM 7.9 mg/dl (8.4-10.2); CARBON DIOXIDE 27 mmol/L (21-31); CHLORIDE 103 mmol/L (97-110); CREATININE 3.43 mg/dl (0.61-1.24); GLUCOSE 181 mg/dl (70-220); PHOSPHORUS 2.6 mg/dl (2.5-4.9); SODIUM 144 mmol/L (135-144)
[2017-09-13 07:44] LABS: VANCOMYCIN,RANDOM 11.6 ug/ml
[2017-09-13] MEDS: ASCORBIC ACID 250 MG TAB NGT (08:30)
[2017-09-13] MEDS: MULTIVIT/CA CARB/B CMPLX/FA TAB NGT (08:31)
[2017-09-13] MEDS: AMIODARONE 200 MG TAB PO ×2 (08:31→20:55)
[2017-09-13] MEDS: BALSAM PERU/CASTOR OIL 60 GM TUBE TOP ×2 (08:32→20:51)
[2017-09-13] MEDS: COLLAGENASE 30 GM TUBE TOP (08:33)
[2017-09-13 09:22] LABS: ANISOCYTOSIS 1+ (0-0); BAND NEUTROPHILS #M 2.3 10^3/ul (0.0-0.6); BAND NEUTROPHILS % (M) 14 % (0-4); LYMPHOCYTES #M 1.7 10^3/ul (0.8-2.9); LYMPHOCYTES % (M) 10 % (15-51); MONOCYTE #M 0.3 10^3/ul (0.3-0.9); MONOCYTES % (M) 2 % (0-11); PLATELET ESTIMATE SIG DECREASED; PLATELET MORPHOLOGY COMMENT @See below; POLYCHROMASIA 1+ (0-0); PROMYELOCYTES #M 0.3 10^3/ul (0-0); PROMYELOCYTES % (M) 2 % (0-0); SEG NEUT #M 12.7 10^3/ul (1.6-7.5); SEGMENTED NEUTROPHILS (M) % 72 % (39-77); SMUDGE%M 19 % (0-0)
[2017-09-13] MEDS: VANCOMYCIN 1 GM 250 ML IVPB (12:05)
[2017-09-13] MEDS: CEFEPIME 1GM/50 ML (PMX) 50 ML IVPB (16:18)
[2017-09-13] MEDS: INSULIN GLARGINE [LANtus] 3 ML PEN SC (20:48)
[2017-09-14] MEDS: INSULIN ASPART [NOVOLOG] 3 ML PEN SC ×5 (01:08→17:00)
[2017-09-14 05:15] LABS: ABNORMAL IP MESSAGE 1; HEMATOCRIT 31.2 % (42.0-52.0); HEMOGLOBIN 10.1 g/dl (14.0-18.0); MEAN CORPUSCULAR HEMOGLOBIN 29.8 pg (29.0-33.0); MEAN CORPUSCULAR HGB CONC 32.4 g/dl (32.0-37.0); MEAN PLATELET VOLUME 11.9 fl (7.4-10.4); NUCLEATED RED BLOOD CELLS% 0.1 /100WBC (0.0-0.0); PLATELET COUNT 34 10^3/UL (140-415); POSITIVE DIFF @See below; RED BLOOD COUNT 3.39 10^6/ul (4.70-6.10); RED CELL DISTRIBUTION WIDTH 19.5 % (11.5-14.5)
[2017-09-14 05:15] LABS: WHITE BLOOD COUNT 16.6 10^3/ul (4.8-10.8)
[2017-09-14 05:27] LABS: ADD MAN DIFF? YES
[2017-09-14] MEDS: VASOPRESSIN 60 UNIT in DEXTROSE 5% 57 ML IV (05:27)
[2017-09-14 05:47] LABS: ALANINE AMINOTRANSFERASE 139 IU/L (13-69); ALBUMIN 2.5 g/dl (3.3-4.9); ALKALINE PHOSPHATASE 401 IU/L (42-121); ANION GAP 21 (8-16); ASPARTATE AMINO TRANSFERASE 108 IU/L (15-46); BILIRUBIN,INDIRECT 0.2 mg/dl (0-1.1); BILIRUBIN,TOTAL 0.6 mg/dl (0.2-1.3); BLOOD UREA NITROGEN 81 mg/dl (7-20); CALCIUM 8.1 mg/dl (8.4-10.2); CARBON DIOXIDE 22 mmol/L (21-31); CHLORIDE 101 mmol/L (97-110); CREATININE 4.38 mg/dl (0.61-1.24); GLUCOSE 173 mg/dl (70-220); POTASSIUM 4.2 mmol/L (3.5-5.1); SODIUM 140 mmol/L (135-144); TOTAL PROTEIN 5.6 g/dl (6.1-8.1)
[2017-09-14] MEDS: PANTOPRAZOLE 40 MG INJ IV (06:58)
[2017-09-14] MEDS: ASCORBIC ACID 250 MG TAB NGT (08:51)
[2017-09-14] MEDS: MULTIVIT/CA CARB/B CMPLX/FA TAB NGT (08:51)
[2017-09-14] MEDS: AMIODARONE 200 MG TAB PO (08:51)
[2017-09-14] MEDS: COLLAGENASE 30 GM TUBE TOP (08:52)
[2017-09-14] MEDS: BALSAM PERU/CASTOR OIL 60 GM TUBE TOP (08:52)
[2017-09-14 09:37] LABS: ANISOCYTOSIS 1+ (0-0); BAND NEUTROPHILS #M 1.3 10^3/ul (0.0-0.6); BAND NEUTROPHILS % (M) 8 % (0-4); LYMPHOCYTES #M 0.6 10^3/ul (0.8-2.9); LYMPHOCYTES % (M) 4 % (15-51); MICROCYTOSIS 1+ (0-0); MONOCYTE #M 0.3 10^3/ul (0.3-0.9); MONOCYTES % (M) 2 % (0-11); MYELOCYTES #M 0.3 10^3/ul (0.0-0.0); MYELOCYTES % (M) 2 % (0-0); PLATELET ESTIMATE SIG DECREASED; POIKILOCYTOSIS 1+ (0-0); POLYCHROMASIA 2+ (0-0); SEG NEUT #M 14.2 10^3/ul (1.6-7.5); SEGMENTED NEUTROPHILS (M) % 84 % (39-77); SMUDGE%M 3 % (0-0)
[2017-09-14] MEDS ORDERED: ACETAMINOPHEN 650MG/20.3ML CUP GTB (18:00)
[2017-09-14] MEDS: morphine (DRIP) 100 MG/100 ML 100 ML IV (19:49)
[2017-09-14] MEDS ORDERED: MEROPENEM 500MG/50 ML (PMX) 50 ML IVPB (21:00)
== END 2017-09-14 21:25 | disposition expired | DRG 870 ==
LOC: E/R 15:16 → ICU 19:52
PROC: 06HM33Z Insertion of Infusion Device into Right Femoral Vein, Percutaneous Approach (ICD-10-PCS; principal; 2017-09-08)
PROC: 5A1955Z Respiratory Ventilation, Greater than 96 Consecutive Hours (ICD-10-PCS; 2017-09-08)
PROC: 0BH17EZ Insertion of Endotracheal Airway into Trachea, Via Natural or Artificial Opening (ICD-10-PCS; 2017-09-08)
PROC: 5A1D70Z Performance of Urinary Filtration, Intermittent, Less than 6 Hours Per Day (ICD-10-PCS; 2017-09-09)
DX: A41.9 Sepsis, unspecified organism (principal); J96.01 Acute respiratory failure with hypoxia; J69.0 Pneumonitis due to inhalation of food and vomit; R65.21 Severe sepsis with septic shock; G92 Toxic encephalopathy; E87.2 Acidosis; R13.10 Dysphagia, unspecified; N18.6 End stage renal disease; I12.0 Hypertensive chronic kidney disease with stage 5 chronic kidney disease or end stage renal disease; D69.6 Thrombocytopenia, unspecified; I48.0 Paroxysmal atrial fibrillation; E78.5 Hyperlipidemia, unspecified; D64.9 Anemia, unspecified; I25.10 Atherosclerotic heart disease of native coronary artery without angina pectoris; E11.9 Type 2 diabetes mellitus without complications; R19.7 Diarrhea, unspecified; E87.6 Hypokalemia; E83.39 Other disorders of phosphorus metabolism; Z79.4 Long term (current) use of insulin; Z99.2 Dependence on renal dialysis; Z51.5 Encounter for palliative care
CPT/HCPCS: 31500; 36415; 36430; 36600; 71045; 74176; 80048; 80053; 80202; 82533; 82803; 82962; 83036; 83605; 83735; 84100; 84484; 85025; 85610; 85730; 86706; 86850; 86900; 86901; 86920; 87040; 87070; 87075; 87081; 87340; 90935; 93005; 94002; 94003; 94770; 96365; 96366; 96375; 96376; 99291-25